=== PATIENT | male | born 1965 | race African-American/Black ===

== ENCOUNTER 2018-07-19 19:05 | Emergency (ER) | payer SELFPAY ==
[~2018-07-19] VITALS: Ht 188 cm; Wt 87.0 kg
[2018-07-19 19:08] VITALS: BP 115/78
[2018-07-19] MEDS ORDERED: KEPP250 PO (19:12)
== END 2018-07-19 21:30 | disposition left against medical advice (07) ==
LOC: ER 20:05
DX: Z53.21 Procedure and treatment not carried out due to patient leaving prior to being seen by health care provider (principal)